=== PATIENT | female | born 1960 | race Caucasian/White ===

== ENCOUNTER 2016-06-14 13:27 | Emergency (ER) ==
[2016-06-14 14:03] VITALS: BP 129/64
--- NOTE | 2016-06-14 15:01 | Diag Imaging Result Document ---
PROCEDURE NAME: CHEST-2 VIEWS - 06/14/2016 FRONTAL AND LATERAL CHEST, TWO VIEWS FINDINGS: The lungs are well expanded. The heart is not enlarged. The vessels are not distended. There are no infiltrates. No pleural effusions. IMPRESSION: No pneumonia.
--- NOTE | 2016-06-14 15:35 | PROVIDER DOCUMENTATION ---
HPI-General Adult - General Chief Complaint: Flu Symptoms Stated Complaint: FLU LIKE SX Time Seen by Provider: 06/14/16 14:35 Source: patient Allergies/Adverse Reactions: Patient Allergies Allergy/AdvReac Type Severity Reaction Status Date / Time acetaminophen AdvReac ITCHING Verified 06/14/16 15:02 [From Darvocet-N] amoxicillin [Amoxicillin] AdvReac HIVES Verified 06/14/16 15:02 aspirin [From Percodan] AdvReac ITCHING Verified 06/14/16 15:02 morphine AdvReac HIVES Verified 06/14/16 15:02 oxycodone HCl * AdvReac ITCHING Verified 06/14/16 15:02 [From Percodan] oxycodone terephthalate * AdvReac ITCHING Verified 06/14/16 15:02 [From Percodan] propoxyphene napsylate * AdvReac ITCHING Verified 06/14/16 15:02 [From Darvocet-N] Home Medications: Home Medication List Medication Instructions Recorded Confirmed Last Taken Type Albuterol Sulfate Inhaler 2 puff INH Q6H PRN PRN #1 inhaler 06/14/16 Unknown Rx [Ventolin Hfa] Ciprofloxacin HCl [Cipro] 500 mg PO BID #14 tablet 06/14/16 Unknown Rx Guaifenesin/Pseudoephedrne HCl 1 each PO BID #30 tab.er.12h 06/14/16 Unknown Rx [Mucinex D ER Tablet] - History of Present Illness -Gen Adult Nature of Presenting Problems: 55 y/o WF c/o cough, sinus congestion, sore throat, body aches x 3 days. Pt states that cough is productive of clear/white mucus. Denies any N/V/D/C, sick contacts, abd. pain. Review of Systems - Adult - REVIEW OF SYSTEMS - ADULT Constitutional: reports: no symptoms reported. denies: chills, fever Eyes: reports: no symptoms reported. denies: blurred vision, double vision Ears, Nose, Mouth & Throat: reports: see HPI, sinus problem, throat pain. denies: ear pain Cardiovascular: reports: no symptoms reported. denies: chest pain, palpitations Respiratory: reports: see HPI, cough. denies: shortness of breath Gastrointestinal: reports: no symptoms reported. denies: abdominal pain, diarrhea, nausea, vomiting Genitourinary: reports: no symptoms reported. denies: dysuria, frequency Musculoskeletal: reports: see HPI, muscle aches. denies: joint pain, joint swelling Integumentary: reports: no symptoms reported. denies: nail changes, rash Neurological: reports: no symptoms reported. denies: numbness, paresthesia Psychiatric: reports: no symptoms reported Endocrine: reports: no symptoms reported. denies: cold intolerance, heat intolerance Hematologic/Lymphatic: reports: no symptoms reported. denies: easy bruising, prolonged bleeding Allergic/Immunologic: reports: no symptoms reported All Other Systems: Reviewed and Negative Past History - Adult - PAST MEDICAL HISTORY-ADULT Review of Records: reports: Nursing Assessment Review, Medications Reviewed Major Childhood Illnesses: reports: history unknown Cardiovascular: reports: denies history Respiratory: reports: denies history Gastrointestinal: reports: denies history Obstetrical/Gynecological: reports: denies history Genitourinary: reports: denies history Musculoskeletal: reports: denies history Neurological: reports: denies history Psychiatric: reports: anxiety Endocrine/Immune: reports: denies history Other Conditions: reports: denies history - PRIOR SURGERIES/PROCEDURES Surgical/Procedure History: reports: cholecystectomy, hysterectomy - PRIOR HOSPITALIZATIONS Prior Hospitalizations: reports: none - IMMUNIZATION STATUS Childhood Immunizations: See Nurse Assessment Flu Vaccine: See Nurse Assessment - FAMILY HISTORY Family History: reviewed, not pertinent - SOCIAL HISTORY Smoking: cigarettes, less than 1 pack/day Provider spent 3-5 mins advising pt. on dangers of tobacco.: Discussed manners to quit use, and f/u contacts for add'l counseling. Physical Exam-General - PHYSICAL EXAM-ADULT Initial Vital Signs Reviewed: Yes - CONSTITUTIONAL General Appearance: alert, mild distress - EYES Eyes: pink conjunctivae - HEAD, EARS, NOSE, MOUTH & THROAT HENMT: normocephalic/atraumatic, moist mucous membranes, pharyngeal erythema. negative: tonsillar exudate - NECK Neck: normal inspection, lymphadenopathy (mild, general cervical) - RESPIRATORY Respiratory: no respiratory distress, no accessory muscle use, decreased breath sounds, crackles, rhonchi. negative: rales, stridor, wheezing - CARDIOVASCULAR Cardiovascular: regular rate, rhythm. negative: bradycardia, tachycardia - LYMPHATIC Lymphatic: negative: cervical node tenderness - MUSCULOSKELETAL Back Exam: normal inspection Extremity: normal gait - SKIN Integumentary: normal color, normal turgor, warm/dry - NEUROLOGIC Neurologic: negative: aphasia - PSYCHIATRIC Psych/Mental Status: normal mood/affect, normal thought content, normal thought process, oriented x 3 Progress - XRAY 1 XRAY Study: Chest Impression: See EMR Report (No pneumonia, per Dr. Klein) Departure - Departure Time of Disposition Order: 15:43 DIAGNOSIS: Bronchitis Disposition: HOME 01 Certified Medical Emergency: Emergent Condition: Stable Additional Instructions: Take medications as directed. Follow up with PCP in 5-7 days for recheck. Tylenol or motrin for pain/body aches. ED Follow Up Instructions: You have been treated by a care provider in the Emergency Department. These instructions are being provided to you so you can have an understanding of how to care for yourself upon discharge. Upon discharge from the Emergency Department, you are responsible for making arrangements for follow-up care by a physician of your choice. Take all prescribed medications as directed. Return to the Emergency Department immediately for any new or worsening symptoms. You may call the Physician Referral phone number at [phone] to obtain a list of Physicians who are taking new patients. Prescriptions: Ciprofloxacin HCl [Cipro] 500 mg PO BID #14 tablet Guaifenesin/Pseudoephedrne HCl [Mucinex D ER Tablet] 1 each PO BID #30 tab.er.12h Albuterol Sulfate Inhaler [Ventolin Hfa] 2 puff INH Q6H PRN PRN #1 inhaler PRN Reason: Wheezing Referrals: None,PCP [Primary Care Provider] - Forms: Return to School/Parent Work Instructions: Acute Bronchitis Attestation - Physician/ ZANA Attestation Patient care was provided by Advanced Practice Provider:: Yes Advanced Practice Provider:: Stacey Bowser Advanced Practice Provider documentation review:: The Mid-level provider documentation, treatment plan and medical decision making was reviewed by the physician who agrees with all treatment and medical decision making by the MLP.
== END 2016-06-14 15:56 | disposition home or self-care (01) ==
LOC: ED 13:27
DX: J40 Bronchitis, not specified as acute or chronic (principal); R05 Cough; R09.81 Nasal congestion; J02.9 Acute pharyngitis, unspecified; M79.1 Myalgia; F17.220 Nicotine dependence, chewing tobacco, uncomplicated; Z71.6 Tobacco abuse counseling; R59.0 Localized enlarged lymph nodes
CPT/HCPCS: 71020; 87081; 87430; 87804; 99283